=== PATIENT | male | born 1960 | race Caucasian/White ===

== ENCOUNTER 2025-01-23 15:23 | Emergency (ER) | payer MEDICARE ==
[~2025-01-23] VITALS: Ht 188 cm; Wt 77.3 kg
[2025-01-23 16:14] VITALS: TEMP 99.3
[2025-01-23] MEDS: ONDANSETRON HCL 4 MG/2 ML VIAL IVP ONE (18:07)
[2025-01-23] MEDS: SODIUM CHLORIDE 0.9% 1,000 ML IV ONE ×2 (18:07→19:47)
[2025-01-23 18:09] LABS: PLATELET COUNT (AUTO) 126 K/uL (150-450); RED BLOOD CELL COUNT(AUTO) 3.80 MIL/uL (4.50-5.90); RED CELL DISTRIBUTION WIDTH 13.3 % (11.5-14.5); WHITE BLOOD COUNT (AUTO) 3.7 K/uL (4.5-11.0)
[2025-01-23 18:16] LABS: CALCIUM, TOTAL 7.6 mg/dL (8.8-10.5); CREATININE 1.4 mg/dL (0.60-1.30); GLOMERULAR FILTR. RATE CALC 51.0 mL/min (>60); GLUCOSE,RANDOM 93.0 mg/dL (70-110); SODIUM SERUM 141.0 mmol/L (136-145); UREA NITROGEN, BLOOD 43.0 mg/dL (7-18)
[2025-01-23 18:43] VITALS: BP 105/75; PULSE 85; RESP 18; O2SAT 96
== END 2025-01-23 22:41 | disposition short-term general hospital (02) ==
LOC: EMS 15:23
DX: R19.7 Diarrhea, unspecified (principal); R11.2 Nausea with vomiting, unspecified; E86.0 Dehydration; F32.A Depression, unspecified; F17.210 Nicotine dependence, cigarettes, uncomplicated
CPT/HCPCS: 99285; 96374; 71045; 96361; 80048; 85025; 36415; 93005; J2405; J7030